=== PATIENT | female | born 1990 | race African-American/Black ===

== ENCOUNTER 2020-10-17 08:30 | Emergency (ER) | payer MEDICAID, SELFPAY ==
[2020-10-17] MEDS ORDERED: Lidocaine 1% w/Epinephrine 1:100K 30 ML VIAL ONE (08:50)
[2020-10-17] MEDS ORDERED: HYDROcodone/Acetaminophen 5/325 mg Tablet ONE (09:11)
[2020-10-17] MEDS ORDERED: Lidocaine 1% (PF) 30 ML VIAL ONE (09:11)
[2020-10-17] MEDS ORDERED: cefTRIAXone\\ROCEPHIN 1 GM VIAL ONE (09:11)
== END 2020-10-17 09:34 | disposition home or self-care (01) ==
LOC: NAV ERS 08:30
DX: N76.4 Abscess of vulva (principal); I10 Essential (primary) hypertension
CPT/HCPCS: 56405; 96372; J0696; J2001